=== PATIENT | male | born 1970 | race Caucasian/White ===

== ENCOUNTER 2022-05-09 16:29 | Emergency (ER) | payer BC, OTHER ==
--- OUTSIDE RECORDS SUMMARY | 2022-05-09 16:31 | XMS REPORT | Clinical Summary ---
:1970 Author Organization [facility] Address [address] [place] [address] Care Team Providers Name Role Phone Unavailable Primary Care Provider Unavailable Allergies No known active allergies Medications Medication Sig Dispensed Refills Start Date End Date Status INV-() Take 1 tablet by 126 tablet 0 01/10/2021 Active varenicline (CHANTIX) mouth every 1 mg morning and take tabletIndications: 2 tablets every Nicotine dependence evening. Active Problems Problem Noted Date Nicotine dependence 11/30/2020 Social History Tobacco Use Types Packs/Day Years Used Date Current Every Day Smoker Cigarettes 2 38 Smokeless Tobacco: Former User Snuff Q uit: 11/13/2020 Tobacco Cessation: Ready to Quit: Yes; C ounseling Given: Yes Alcohol Use Standard Drinks/Week Comments Yes 3 (1 standard drink = 0.6 oz pure alcoho l) Sex Assigned at Date Recorded Not on file Obstetrics History Last Filed Vital Signs Not on file Plan of Treatment Health Maintenance Due Date Last Done Comments COVID-19 Vaccination (#1) 05/28/1971 Results Not on fileafter 05/09/2021
--- OUTSIDE RECORDS SUMMARY | 2022-05-09 16:32 | XMS REPORT | Continuity of Care Document ---
:1970 Author Organization [facility] t Address [address] [place] [address] Care Team Providers Name Role Phone Zora Nogueira MD Primary Care Physician [phone] SYSTEM, PROVIDER NOT IN Attending Clinician Unavailable ZORA NOGUEIRA Attending Clinician Unavailable LAB90 Attending Clinician Unavailable Zora Nogueira MD Attending Clinician [phone] ALLEY GALEANA Attending Clinician Unavailable Payers Payer Name Policy Type Policy Number Effective Date Expiration Date S preet BCBS 2 [id number] 2021 00:00:00 Problems Condition Condition Condition Status Onset Resolution Last Treating Co mments Source Name Details Category Date Date Treatment Clinician Date Primary Primary Disease Active 2020-09 Glo hypertensi hypertensi 0-27 Se ybold on on 00:00: 00 Uncontroll Uncontroll Disease Active 2020-09 K elsey ed type 2 ed type 2 0-27 Seyb old diabetes diabetes 00:00: mellitus mellitus 00 with with hyperglyce hyperglyce jelani (HCC) jelani (HCC) - Not - Not Controlled Controlled Acute deep Acute deep Disease Active 2020-09 K elsey vein vein 0-27 Seybold thrombosis thrombosis 00:00: (DVT) of (DVT) of 00 proximal proximal vein of vein of left lower left lower extremity extremity (HCC) - (HCC) - Improved Improved Nicotine Nicotine Disease Active Unive rs dependence dependence 3-26 it y of 00:00: [place] 00 MD [facility] No known No known Disease Kelse y active active Seybold problems problems Allergies, Adverse Reactions, Alerts Allergy Allergy Status Severity Reaction(s) Onset Inactive Treating Comm ents Source Name Type Date Date Clinician NO KNOWN Drug Active Univers ALLERGIE Class ity of [facility] Social History Social Habit Start Date Stop Date Quantity Comments Source Exposure to Not sure Glo Cooperol etelvina SARS-CoV-2 (event) History of tobacco Cigarette Smoker Glo Lozada use Cigarettes smoked 2020-11-30 2020-11-30 Univers ity of current (pack per 00:00:00 00:00:00 Smooth [facility] ) - Reported Cancer Ce nter Cigarette 2020-11-30 2020-11-30 University of pack-years 00:00:00 00:00:00 [facility] Tobacco use and 2020-11-30 2020-11-30 Former smokeless Uni versity of exposure 00:00:00 00:00:00 tobacco user Smooth [facility] Alcohol intake 2020-11-30 2020-11-30 Current drinker Unive rsity of 00:00:00 00:00:00 of alcohol Smooth [facility]hao ([facility]) [facility] Sex Ass[birth year] At [birth year] Universit y of 00:00:00 00:00:00 Smooth [facility] Smoking Status Start Date Stop Date Source Tobacco smoking consumption unknown Glo Lozada Smokes tobacco daily 2021-06-03 00:00:00 Glo Coopermichael Medications Ordered Filled Start Stop Current Ordering Indication Dosage Frequency Signature Comments Components Source Medication Medication Date Date Medication? Clinician (SIG) Name Name Amoxicillin Yes [id number] 1{tbl} Take 1 Glo -Pot 2-25 tablet by Seybold Clavulanate 00:00: mouth 2 875-125 MG 00 times oral Tablet daily Dulaglutide Yes [id number] 1.5mg Inject 1.5 Glo (Trulicity) 1-28 mg into Seybo ld 1.5 00:00: the skin MG/0.5ML 00 once a subcutaneou week s Solution Pen-injecto r Amlodipine Yes [id number] 10mg Take 1 K elsey Besylate 10 1-28 tablet (10 Se ybold MG oral 00:00: mg total) Tablet 00 by mouth daily Triamterene Yes [id number] 1{tbl} Take 1 Glo -HCTZ 1-28 tablet by Seybold 37.5-25 MG 00:00: mouth oral Tablet 00 daily Trazodone Yes 50mg QD Take 1 Glo HCl 50 MG 1-28 tablet (50 Seyb old oral Tablet 00:00: mg total) 00 by mouth nightly as needed for sleep Amoxicillin Yes [id number] 1{tbl} Take 1 Glo -Pot 1-28 tablet by Seybold Clavulanate 00:00: mouth 2 875-125 MG 00 times oral Tablet daily Dulaglutide Yes [id number] 1.5mg Inject 1.5 Glo (Trulicity) 1-28 mg into Seybo ld 1.5 00:00: the skin MG/0.5ML 00 once a subcutaneou week s Solution Pen-injecto r Amlodipine Yes [id number] 10mg Take 1 K elsey Besylate 10 1-28 tablet (10 Se ybold MG oral 00:00: mg total) Tablet 00 by mouth daily Triamterene Yes [id number] 1{tbl} Take 1 Glo -HCTZ 1-28 tablet by Seybold 37.5-25 MG 00:00: mouth oral Tablet 00 daily Trazodone Yes 50mg QD Take 1 Glo HCl 50 MG 1-28 tablet (50 Seyb old oral Tablet 00:00: mg total) 00 by mouth nightly as needed for sleep Amoxicillin 2021- No [id number] 1{tbl} Take 1 Glo -Pot 1-28 02-25 tablet by Seybold Clavulanate 00:00: 00:00 mouth 2 875-125 MG 00 :00 times oral Tablet daily Dulaglutide 2020-09 Yes [id number] .75mg Inject Glo (Trulicity) 0-27 0.75 mg Seybo ld 0.75 00:00: into the MG/0.5ML 00 skin once subcutaneou a week s Solution Pen-injecto r Dulaglutide 2020-09- No [id number] .75mg Inject Glo (Trulicity) 0-27 -28 0.75 mg Seyb old 0.75 00:00: 00:00 into the MG/0.5ML 00 :00 skin once subcutaneou a week s Solution Pen-injecto r BUPROPION 2020-09 Yes 150mg Take 150 Darion sey HCL SR 150 0-13 mg by Seybold MG OR TB12 00:00: mouth 2 00 times daily BUPROPION 2020-09 Yes 150mg Take 150 Darion sey HCL SR 150 0-13 mg by Seybold MG OR TB12 00:00: mouth 2 00 times daily BUPROPION 2020-09 Yes 150mg Take 150 Darion sey HCL SR 150 0-13 mg by Seybold MG OR TB12 00:00: mouth 2 00 times daily Triamterene 2020-09 Yes 1{tbl} Take 1 Ke lsey -HCTZ 0-13 tablet by Seybold 37.5-25 MG 00:00: mouth oral Tablet 00 daily Triamterene 2020-09- No 1{tbl} Take 1 K elsey -HCTZ 0-13 - tablet by Seybold 37.5-25 MG 00:00: 00:00 mouth oral Tablet 00 :00 daily Rosuvastati 2020-09 Yes [id number] 20mg Take 1 Glo n Calcium 0-12 tablet (20 Seyb old 20 MG oral 00:00: mg total) Tablet 00 by mouth at bedtime Rosuvastati 2020-09 Yes [id number] 20mg Take 1 Glo n Calcium 0-12 tablet (20 Seyb old 20 MG oral 00:00: mg total) Tablet 00 by mouth at bedtime Rosuvastati 2020-09 Yes [id number] 20mg Take 1 Glo n Calcium 0-12 tablet (20 Seyb old 20 MG oral 00:00: mg total) Tablet 00 by mouth at bedtime Metformin Yes [id number] 1000mg Take 2 Glo HCl 500 MG 9-27 tablets Seybol d oral Tablet 00:00: (1,000 mg 00 total) by mouth 2 times daily (with meals) Amlodipine Yes [id number] 5mg Take 2 K elsey Besylate 9-27 tablets (5 Seybo ld 2.5 MG oral 00:00: mg total) Tablet 00 by mouth at bedtime Metformin Yes [id number] 1000mg Take 2 Glo HCl 500 MG 9-27 tablets Seybol d oral Tablet 00:00: (1,000 mg 00 total) by mouth 2 times daily (with meals) traMADol-Ac Yes [id number] 1{tbl} Q6H Take 1 Glo etaminophen 9-27 8 tablet by Sey bold 37.5-325 MG 00:00: mouth oral Tablet 00 every 6 hours as needed for pain Amlodipine Yes [id number] 5mg Take 2 K elsey Besylate 9-27 tablets (5 Seybo ld 2.5 MG oral 00:00: mg total) Tablet 00 by mouth at bedtime Metformin Yes [id number] 1000mg Take 2 Glo HCl 500 MG 9-27 tablets Seybol d oral Tablet 00:00: (1,000 mg 00 total) by mouth 2 times daily (with meals) traMADol-Ac Yes [id number] 1{tbl} Q6H Take 1 Glo etaminophen 9-27 8 tablet by Sey bold 37.5-325 MG 00:00: mouth oral Tablet 00 every 6 hours as needed for pain Metformin Yes [id number] 1000mg Take 2 Glo HCl 500 MG 9-27 tablets Seybol d oral Tablet 00:00: (1,000 mg 00 total) by mouth 2 times daily (with meals) Amlodipine 2020-0 2021- No [id number] 5mg Take 2 Glo Besylate 9-27 01-28 tablets (5 Seyb old 2.5 MG oral 00:00: 00:00 mg total) Tablet 00 :00 by mouth at bedtime traMADol-Ac 2020-2021- No [id number] 1{tbl} Q6H Take 1 Glo etaminophen 9-27 01-28 8 tablet by Se ybold 37.5-325 MG 00:00: 00:00 mouth oral Tablet 00 :00 every 6 hours as needed for pain traMADol-Ac 2021-0 Yes [id number] 1{tbl} Q6H Take 1 Glo etaminophen 9-17 8 tablet by Sey bold 37.5-325 MG 00:00: mouth oral Tablet 00 every 6 hours as needed for pain traMADol-Ac 2020- No [id number] 1{tbl} Q6H Take 1 Glo etaminophen 9-17 09-27 8 tablet by Se ybold 37.5-325 MG 00:00: 00:00 mouth oral Tablet 00 :00 every 6 hours as needed for pain True Metrix 0 Yes USE TO Cici ey Blood 9-16 TEST SUGAR Seybold Glucose 00:00: 3 TIMES Test in 00 DAILY. vitro Strip True Metrix 0 Yes USE TO Cici ey Blood 9-16 TEST SUGAR Seybold Glucose 00:00: 3 TIMES Test in 00 DAILY. vitro Strip True Metrix Yes USE TO Cici ey Blood 9-16 TEST SUGAR Seybold Glucose 00:00: 3 TIMES Test in 00 DAILY. vitro Strip True Metrix Yes USE TO Cici ey Blood 9-16 TEST SUGAR Seybold Glucose 00:00: 3 TIMES Test in 00 DAILY. vitro Strip Blood Yes Use as Glo Pressure 9-15 directed Seybold Monitor 00:00: does not 00 apply Misc Blood Yes See Admin Glo Glucose 9-15 Instructio Seybol d Monitoring 00:00: ns Suppl (True 00 Metrix Air Glucose Meter) w/Device does not apply Kit Eliquis Yes 1{tbl} Take 1 Glo DVT/PE 9-15 tablet by Seybold Starter 00:00: mouth 2 Pack 5 MG 00 times oral Tablet daily Therapy Pack Apixaban Yes 10mg Take 10 mg Darion sey Starter 9-15 by mouth Seybold Pack 00:00: See Admin (Eliquis 00 Instructio DVT/PE ns Starter Pack) 5 MG oral Tablet Therapy Pack Rosuvastati Yes 20mg Take 20 mg Glo n Calcium 9-15 by mouth Seybol d 20 MG oral 00:00: at bedtime Tablet 00 Metformin Yes 1{tbl} Take 1 Cici ey HCl 500 MG 9-15 tablet by Seyb old oral Tablet 00:00: mouth 2 00 times daily Blood 2020-0 Yes Use as Glo Pressure 9-15 directed Seybold Monitor 00:00: does not 00 apply Misc Blood 2020-0 Yes See Admin Glo Glucose 9-15 Instructio Seybol d Monitoring 00:00: ns Suppl (True 00 Metrix Air Glucose Meter) w/Device does not apply Kit Eliquis 2020-0 Yes 1{tbl} Take 1 Glo DVT/PE 9-15 tablet by Seybold Starter 00:00: mouth 2 Pack 5 MG 00 times oral Tablet daily Therapy Pack Amlodipine 2020-0 Yes 5mg Take 5 mg Ke lsey Besylate 9-15 by mouth Seybold 2.5 MG oral 00:00: at bedtime Tablet 00 Rosuvastati 2020-0 Yes 20mg Take 20 mg Glo n Calcium 9-15 by mouth Seybol d 20 MG oral 00:00: at bedtime Tablet 00 Blood 2020-0 Yes Use as Glo Pressure 9-15 directed Seybold Monitor 00:00: does not 00 apply Misc Blood 2020-0 Yes See Admin Glo Glucose 9-15 Instructio Seybol d Monitoring 00:00: ns Suppl (True 00 Metrix Air Glucose Meter) w/Device does not apply Kit Eliquis 2020-0 Yes 1{tbl} Take 1 Glo DVT/PE 9-15 tablet by Seybold Starter 00:00: mouth 2 Pack 5 MG 00 times oral Tablet daily Therapy Pack Apixaban 2020-0 Yes 10mg Take 10 mg Darion sey Starter 9-15 by mouth Seybold Pack 00:00: See Admin (Eliquis 00 Instructio DVT/PE ns Starter Pack) 5 MG oral Tablet Therapy Pack Blood 2020-0 Yes Use as Glo Pressure 9-15 directed Seybold Monitor 00:00: does not 00 apply Misc Blood 2020-0 Yes See Admin Glo Glucose 9-15 Instructio Seybol d Monitoring 00:00: ns Suppl (True 00 Metrix Air Glucose Meter) w/Device does not apply Kit Eliquis 2020-0 Yes 1{tbl} Take 1 Glo DVT/PE 9-15 tablet by Seybold Starter 00:00: mouth 2 Pack 5 MG 00 times oral Tablet daily Therapy Pack Apixaban Yes 10mg Take 10 mg Darion sey Starter 9-15 by mouth Seybold Pack 00:00: See Admin (Eliquis 00 Instructio DVT/PE ns Starter Pack) 5 MG oral Tablet Therapy Pack Blood Yes Use as Glo Pressure 9-15 directed Seybold Monitor 00:00: does not 00 apply Misc Blood Yes See Admin Glo Glucose 9-15 Instructio Seybol d Monitoring 00:00: ns Suppl (True 00 Metrix Air Glucose Meter) w/Device does not apply Kit Eliquis Yes 1{tbl} Take 1 Glo DVT/PE 9-15 tablet by Seybold Starter 00:00: mouth 2 Pack 5 MG 00 times oral Tablet daily Therapy Pack Apixaban Yes 10mg Take 10 mg Darion sey Starter 9-15 by mouth Seybold Pack 00:00: See Admin (Eliquis 00 Instructio DVT/PE ns Starter Pack) 5 MG oral Tablet Therapy Pack Metformin 2020- No 1{tbl} Take 1 Darion sey HCl 500 MG 05-22 tablet by Sey bold oral Tablet 00:00: 00:00 mouth 2 00 :00 times daily Amlodipine 2020- No 5mg Take 5 mg K elsey Besylate 05-22 by mouth Seybol d 2.5 MG oral 00:00: 00:00 at bedtime Tablet 00 :00 INV-( Yes Nicotine Take 1 Univers 953) 5-06 dependence tablet by ity of varenicline 00:00: mouth [place] (CHANTIX) 1 00 every MD mg tablet morning Anderso and take 2 n tablets Cancer every Center evening. Vital Signs Vital Name Observation Time Observation Value Comments Source Systolic blood pressure 2021-11-01 14:03:00 125 mm[Hg] Glo Robertsonybold Diastolic blood 2021-11-01 14:03:00 80 mm[Hg] Kel y Seybold pressure Heart rate 2021-11-01 14:03:00 76 /min Glo S grantbocarolina Body temperature 2021-11-01 14:03:00 36.56 Karo Cici ey Seybold Respiratory rate 2021-11-01 14:03:00 14 /min Cici ey Seybold Body height 2021-11-01 14:03:00 180.3 cm Glo S eybold Body weight 2021-11-01 14:03:00 155.13 kg Glo S eybold BMI 2021-11-01 14:03:00 47.70 kg/m2 Glo S eybold Systolic blood pressure 2021-10-04 14:44:00 160 mm[Hg] Glo Seybold Diastolic blood 2021-10-04 14:44:00 89 mm[Hg] Kelse y Seybold pressure Heart rate 2021-10-04 14:44:00 78 /min Glo S eybold Body temperature 2021-10-04 14:44:00 37.33 Karo Cici ey Seybold Respiratory rate 2021-10-04 14:44:00 16 /min Cici ey Seybold Body height 2021-10-04 14:44:00 180.3 cm Glo S eybold Body weight 2021-10-04 14:44:00 159.031 kg Glo S eybold BMI 2021-10-04 14:44:00 48.90 kg/m2 Glo S eybold Systolic blood pressure 2021-07-03 13:15:00 144 mm[Hg] Glo Seybold Diastolic blood 2021-07-03 13:15:00 84 mm[Hg] Kelse y Seybold pressure Heart rate 2021-07-03 12:50:00 85 /min Glo S eybold Body temperature 2021-07-03 12:50:00 36.61 Karo Cici ey Seybold Respiratory rate 2021-07-03 12:50:00 14 /min Cici ey Seybold Body height 2021-07-03 12:50:00 180.3 cm Glo S eybold Systolic blood pressure 2021-06-03 16:22:00 148 mm[Hg] Glo Seybold Diastolic blood 2021-06-03 16:22:00 80 mm[Hg] Kelse y Seybold pressure Heart rate 2021-06-03 16:22:00 87 /min Glo S eybold Body temperature 2021-06-03 16:22:00 35.28 Karo Cici ey Seybold Respiratory rate 2021-06-03 16:22:00 20 /min Cici ey Seybold Body height 2021-06-03 16:22:00 180.3 cm Glo Powers eybold Body weight 2021-06-03 16:22:00 161.027 kg Glo Powers eybold BMI 2021-06-03 16:22:00 49.51 kg/m2 Glo S eybold Systolic blood pressure 2021-05-24 19:25:00 148 mm[Hg] Glo Seybold Diastolic blood 2021-05-24 19:25:00 79 mm[Hg] Kelse y Seybold pressure Heart rate 2021-05-24 19:25:00 88 /min Glo burnsbold Body temperature 2021-05-24 19:25:00 37.06 Karo Cici ey Seybold Respiratory rate 2021-05-24 19:25:00 15 /min Cici burns Seybold Body height 2021-05-24 19:25:00 180.3 cm Glo burnsbocarolina Body weight 2021-05-24 19:25:00 159.757 kg Glo burnsbold BMI 2021-05-24 19:25:00 49.12 kg/m2 Glo burnsbold Procedures This patient has no known procedures. Plan of Care Planned Activity Planned Date Details Comments Source Future Scheduled 2022-03-12 COVID-19 Vaccination [facility] [place] Test 07:15:21 (#1) [code = COVID-19 MD [facility] Vaccination (#1)] Center Encounters Start End Encounter Admission Attending Care Care Encounter Source Date/Time Date/Time Type Type Clinicians Facility Department ID 2020-12-03 Outpatient SYSTEM, [facility] [id number] 13:12:28 PROVIDER Juvelitzy jean baptiste 2022-05-09 2022-05-09 Outpatient GLO EVERETT [id number] Glo 14:00:00 14:00:00 Seybol etelvina 2022-05-02 2022-05-02 Outpatient GLO NOGUEIRA [id number] Glo 08:00:00 08:00:00 ZORA Cooperol etelvina 2022-05-01 2022-05-01 Outpatient LAB90 GLO EVERETT [id number] Glo 09:55:00 09:55:00 Seybol d 2022-05-01 2022-05-01 Office Demetrius NOGUEIRA [id number] Glo 09:15:00 09:15:00 Visit ZORA Chairez [id number] Se ybold [id number] 2021-11-05 2021-11-05 Outpatient GLO NOGUEIRA [id number] Glo 00:00:00 00:00:00 ZORA Seybol d 2021-11-01 2021-11-01 Office Demetrius Nogueira [id number] Glo 08:00:00 08:15:00 Visit Zora Chairez [id number] Se ybold Somogyi [id number] 2021-10-17 2021-10-17 Outpatient GLO NOGUEIRA [id number] Glo 00:00:00 00:00:00 ZORA Seybol d 2021-10-07 2021-10-07 Outpatient LAB90 GLO EVERETT [id number] Glo 08:50:00 08:50:00 Seybol d 2021-10-04 2021-10-04 Office Demetrius Nogueira [id number] Glo 08:45:00 09:00:00 Visit Zora Chairez [id number] Se ybold Somogyi [id number] 2021-10-03 2021-10-03 Outpatient GLO NOGUEIRA [id number] Glo 08:00:00 08:00:00 ZORA Seybol d 2021-07-03 2021-07-03 Office Demetrius Nogueira [id number] Glo 07:46:57 08:16:57 Visit Zora Chairez [id number] Se ybold Somogyi [id number] 2021-06-19 2021-06-19 Outpatient GLO NOGUEIRA [id number] Glo 00:00:00 00:00:00 ZORA Seybol d 2021-06-18 2021-06-18 Outpatient GLO NOGUEIRA [id number] Glo 16:30:00 16:30:00 ZORA Seybol d 2021-06-18 2021-06-18 Outpatient GLO NOGUEIRA [id number] Glo 00:00:00 00:00:00 ZORA Seybol d 2021-06-03 2021-06-03 Office Demetrius Nogueira [id number] Glo 11:16:47 11:46:47 Visit Zoraphi Chairez [id number] Se ybold Somogyi [id number] 2021-06-03 2021-06-03 Outpatient GLO NOGUEIRA [id number] Glo 00:00:00 00:00:00 ZORA Seybol d 2021-05-29 2021-05-29 Outpatient GLO NOGUEIRA [id number] Glo 09:00:00 09:00:00 ZORA Seybol d 2021-05-29 2021-05-29 Outpatient GLO NOGUEIRA [id number] Glo 00:00:00 00:00:00 ZORA Seybol d 2021-05-27 2021-05-27 Outpatient GLO NOGUEIRA [id number] Glo 00:00:00 00:00:00 ZORA Seybol d 2021-05-24 2021-05-24 Office Demetrius Nogueira [id number] Glo 14:16:08 14:46:08 Visit Zora Chairez [id number] Se ybold Somogyi [id number] 2021-05-22 2021-05-22 Emergency X [facility] ERT [id number] Univers 14:04:00 14:04:00 ALLEY [facility] Results This patient has no known results.
--- NOTE | 2022-05-09 16:47 | ER ---
Nurse's Notes [facility] Name: Ulises Bridges Age: 51 yrs Sex: Male : 1970 Arrival Date: 05/09/2022 Time: 16:32 Bed Waiting Private MD: Zora Nogueira Diagnosis: Chronic DVT left lower extremity Presentation: 05/09 16:37 Chief complaint: Patient states: I saw my administrative analyst today and I had an ultrasound bm7 done of my left leg and they told me to come to the ER because I have a blood clot in my left leg. Coronavirus screen: At this time, the client does not indicate any symptoms associated with coronavirus-19. Ebola Screen: No symptoms or risks identified at this time. Initial Sepsis Screen: Does the patient meet any 2 criteria? No. Patient's initial sepsis screen is negative. Does the patient have a suspected source of infection? No. Patient's initial sepsis screen is negative. Risk Assessment: Do you want to hurt yourself or someone else? Patient reports no desire to harm self or others. Onset of symptoms is unknown. 16:37 Method Of Arrival: Ambulatory bm7 16:37 Acuity: FIDEL 3 bm7 Triage Assessment: 16:40 General: Appears in no apparent distress. uncomfortable, obese, well groomed, Behavior bm7 is calm, cooperative, appropriate for age. Pain: Complains of pain in left leg Pain does not radiate. EENT: No deficits noted. No signs and/or symptoms were reported regarding the EENT system. Neuro: Level of Consciousness is awake, alert, obeys commands, Oriented to person, place, time, situation, Weakness in left leg(s) Gait is steady. Cardiovascular: Capillary refill < 3 seconds Patient's skin is warm and dry. Pulses are all present. Edema is 1+ to left midcalf and left ankle Chest pain is denied. Respiratory: No deficits noted. Airway is patent Respiratory effort is even, unlabored, Respiratory pattern is regular, symmetrical. GI: No deficits noted. No signs and/or symptoms were reported involving the gastrointestinal system. : No deficits noted. No signs and/or symptoms were reported regarding the genitourinary system. Derm: No deficits noted. No signs and/or symptoms reported regarding the dermatologic system. Musculoskeletal: Reports pain in left leg. Historical: - Allergies: 16:40 No Known Allergies; bm7 - Home Meds: 16:40 Eliquis 5 mg oral tab 1 tab 2 times per day [Active]; bm7 - PMHx: 16:40 Deep vein thrombosis; Diabetes mellitus; Hypertensive disorder; bm7 - Immunization history:: Adult Immunizations up to date, Client reports receiving the 1st dose of the Covid vaccine. - Social history:: Smoking status: Patient reports the use of cigarette tobacco products, smokes one pack cigarettes per day. Screenin:46 Abuse screen: Denies threats or abuse. Nutritional screening: No deficits noted. bm7 Tuberculosis screening: No symptoms or risk factors identified. Fall Risk None identified. Assessment: 16:46 Reassessment: No changes from previously documented assessment. bm7 Vital Signs: 16:40 BP 172 / 100; Pulse 88; Resp 18; Temp 97.1(TE); Pulse Ox 98% on R/A; Weight 149.69 kg bm7 (R); Height 5 ft. 10 in. (177.80 cm); Pain 4/10; 16:40 Body Mass Index 47.35 (149.69 kg, 177.80 cm) bm7 ED Course: 16:32 Patient arrived in ED. as 16:33 Zora Nogueira is Private Physician. as 16:33 Joan Chairez FNP-C is [facility]. kb 16:33 Guilherme Cayr MD is Attending Physician. kb 16:40 Triage completed. bm7 16:40 Arm band placed on right wrist. bm7 16:46 No apparent distress. bm7 16:46 Patient has correct armband on for positive identification. bm7 16:46 No provider procedures requiring assistance completed. Patient did not have IV access bm7 during this emergency room visit. Administered Medications: No medications were administered Medication: 16:46 VIS not applicable for this client. bm7 Outcome: 16:46 Discharge ordered by . kb 16:46 Discharged to during triage the patients administrative analyst called and said that he needed to bm7 go to [facility] to have an interventional surgery for the DVT 16:46 Condition: stable 16:46 Discharge instructions given to patient, Instructed on discharge instructions, Demonstrated understanding of instructions. 16:48 Patient left the ED. bm7 Signatures: Joan Chairez FNP-C FNP-Ckb Martinez, Amelia as Cintron, Debby, RN RN bm7
--- NOTE | 2022-05-09 16:47 | EDPHYS ---
Physician Documentation [facility] Name: Ulises Bridges Age: 51 yrs Sex: Male : 1970 Arrival Date: 05/09/2022 Time: 16:32 Bed Waiting Private MD: Zora Nogueira ED Physician Guilherme Cary HPI: 05/09 23:31 This 51 yrs old Male presents to ER via Ambulatory with complaints of Leg Swelling - kb r/o dvt. 23:31 The patient presents with pain, swelling. The complaints affect the left villalobos. Context: kb The problem was sustained at home, the patient can fully bear weight, the patient is able to ambulate. Onset: The symptoms/episode began/occurred 1 year(s) ago. Modifying factors: The symptoms are alleviated by nothing. the symptoms are aggravated by nothing. Associated signs and symptoms: Pertinent positives: swelling. Treatment prior to arrival includes: Eliquis. Severity of symptoms: At their worst the symptoms were moderate, in the emergency department the symptoms are unchanged. The patient has experienced similar episodes in the past, chronically. The patient has been recently seen by a physician:. Patient reports chronic DVT in left lower extremity. States he has had burning pain, swelling to left lower leg for 1 year. Had ultrasound done 1 year ago that showed DVT, was put on Eliquis at that time. Had repeat ultrasound done today. DVT still present. Was called by his physician and told to come to the ER for treatment. States they spoke with cardiology and are expecting him. Patient denies any new symptoms.. Historical: - Allergies: 16:40 No Known Allergies; [facility] - Home Meds: 16:40 Eliquis 5 mg oral tab 1 tab 2 times per day [Active]; bm7 - PMHx: 16:40 Deep vein thrombosis; Diabetes mellitus; Hypertensive disorder; bm7 - Immunization history:: Adult Immunizations up to date, Client reports receiving the 1st dose of the Covid vaccine. - Social history:: Smoking status: Patient reports the use of cigarette tobacco products, smokes one pack cigarettes per day. ROS: 23:33 Constitutional: Negative for fever, chills, and weight loss. kb 23:33 MS/extremity: Positive for pain, swelling, tenderness, of the Left lower leg. 23:33 All other systems are negative. Exam: 23:33 Constitutional: This is a well developed, well nourished patient who is awake, alert, kb and in no acute distress. Head/Face: Normocephalic, atraumatic. ENT: Moist Mucous membranes Cardiovascular: Regular rate and rhythm with a normal S1 and S2. No gallops, murmurs, or rubs. No pulse deficits. Respiratory: Respirations even and unlabored. No increased work of breathing. Talking in full sentences Neuro: Awake and alert, GCS 15, oriented to person, place, time, and situation. Moves all extremities. Normal gait. Psych: Awake, alert, with orientation to person, place and time. Behavior, mood, and affect are within normal limits. 23:33 Musculoskeletal/extremity: Extremities: grossly normal except: noted in the Left lower leg: erythema, pain, swelling, tenderness, ROM: intact in all extremities, Circulation is intact in all extremities. Sensation intact. DVT Exam: pain, swelling, tenderness, erythema, increased warmth. 23:33 Skin: Appearance: normal except for affected area, Color: erythematous, Temperature: warm. Vital Signs: 16:40 BP 172 / 100; Pulse 88; Resp 18; Temp 97.1(TE); Pulse Ox 98% on R/A; Weight 149.69 kg bm7 (R); Height 5 ft. 10 in. (177.80 cm); Pain 4/10; 16:40 Body Mass Index 47.35 (149.69 kg, 177.80 cm) bm7 MDM: 16:45 Patient medically screened. kb 23:35 Data reviewed: vital signs, nurses notes. Data interpreted: Pulse oximetry: on room air kb is 98 %. Interpretation: normal. Counseling: I had a detailed discussion with the patient and/or guardian regarding: the historical points, exam findings, and any diagnostic results supporting the discharge/admit diagnosis, the need for outpatient follow up, a family practitioner, to return to the emergency department if symptoms worsen or persist or if there are any questions or concerns that arise at home. ED course: Patient received phone call from physician's office during exam. They informed patient that he was supposed to go to [facility] in the [facility] and the utilization management manager there is expecting him. Patient decided to leave and go to [facility] for DVT treatment.. Administered Medications: No medications were administered Disposition Summary: 05/09/22 16:46 Discharge Ordered Location: Home Condition: Stable kb Diagnosis - Chronic DVT left lower extremity kb Followup: kb - With: Emergency Department - When: As needed - Reason: Worsening of condition Followup: kb - With: Private Physician - When: 2 - 3 days - Reason: Recheck today's complaints, Continuance of care, Re-evaluation by your physician Discharge Instructions: - Discharge Summary Sheet kb - Deep Vein Thrombosis kb Forms: - Medication Reconciliation Form kb - Thank You Letter kb - Antibiotic Education kb - Prescription Opioid Use kb Addendum: 05/13/2022 07:36 Co-signature as Attending Physician, Guilherme Cary MD. r n Signatures: Joan Chairez, [employer] Guilherme Cary MD MD rn McCarthy, Brittany, RN RN bm7
[2022-05-09 17:31] VITALS: BP 172/100; TEMP 97.1; O2SAT 98
== END 2022-05-09 16:48 | disposition home or self-care (01) ==
LOC: ER 16:29
DX: I82.502 Chronic embolism and thrombosis of unspecified deep veins of left lower extremity (principal); Z79.01 Long term (current) use of anticoagulants; F17.210 Nicotine dependence, cigarettes, uncomplicated
CPT/HCPCS: 99281